=== PATIENT | male | born 1950 | race Caucasian/White ===

== ENCOUNTER 2021-04-28 15:30 | Emergency (ER) | payer SELFPAY ==
[2021-04-28] MEDS ORDERED: Labetalol 100 MG/20 ML MDV IVPUSH ONE (15:44)
[2021-04-28] MEDS ORDERED: Labetalol 100 MG/20 ML MDV ONE (15:44)
[2021-04-28] MEDS ORDERED: Losartan 50 MG Tab PO ONE (17:04)
[2021-04-28] MEDS ORDERED: Hydrochlorothiazide 25 MG Tab PO ONE (17:05)
== END 2021-04-28 19:23 | disposition home or self-care (01) ==
LOC: JD.ED 15:30
DX: I16.9 Hypertensive crisis, unspecified (principal); I10 Essential (primary) hypertension; Z79.899 Other long term (current) drug therapy
CPT/HCPCS: 36415; 70450; 71045; 80053; 82947; 84484; 85025; 85610; 85730; 93005; 96374; 99284; A9270; J3490; 93010; 99285

== ENCOUNTER 2024-10-28 23:00 | Emergency (ER) | payer SELFPAY ==
[2024-10-28 23:54] LABS: BASOPHILS ABSOLUTE AUTO 0.1 K/mm3 (0.0-0.2); BASOPHILS PERCENT AUTO 0.4 % (0.0-1.0); EOSINOPHILS ABSOLUTE AUTO 0.0 K/mm3 (0.0-0.4); EOSINOPHILS PERCENT AUTO 0.1 % (0.0-6.0); IMMATURE GRAN ABSOLUTE AUTO 0.11 K/mm3 (0.00-0.05); IMMATURE GRAN PERCENT AUTO 0.5 % (0.0-0.4); LYMPHOCYTES ABSOLUTE AUTO 2.3 K/mm3 (1.0-4.8); LYMPHOCYTES PERCENT AUTO 10.1 % (24.0-44.0); MEAN PLATELET VOLUME 8.9 fl (9.4-12.4); MONOCYTES ABSOLUTE AUTO 3.1 K/mm3 (0.0-0.8); MONOCYTES PERCENT AUTO 13.8 % (0.0-8.0); NEUTROPHILS ABSOLUTE AUTO 16.9 K/mm3 (1.8-7.7); NEUTROPHILS PERCENT AUTO 75.1 % (41.0-71.0); NRBC ABSOLUTE 0.00 (0.00-0.02); NRBC PERCENT 0.0 % (0.0-0.2); PLATELET COUNT,PLT 402 K/mm3 (150-400); RED BLOOD CELL COUNT 4.41 M/mm3 (4.52-5.90); WHITE BLOOD CELL COUNT,WBC 22.50 K/mm3 (3.9-11.3)
[2024-10-29] MEDS: Ketorolac 15 MG/ML SDV IVPUSH ONE ×2 (00:05→06:15)
[2024-10-29 00:06] LABS: A/G RATIO 0.8 (1-2); ALANINE AMINOTRANSFERASE,ALT 50.0 U/L (16-63); ASPARTATE AMNIOTRANSFERASE,AST 24.0 U/L (15-37); BILIRUBIN TOTAL 1.3 mg/dL (0.2-1.0); BLOOD UREA NITROGEN,BUN 28.0 mg/dL (7-18); CARBON DIOXIDE,CO2 24.0 mEq/L (21-32); CHLORIDE,CL 98.0 mEq/L (98-107); CREATININE 1.5 mg/dL (0.7-1.3); EST CRCL DRUG DOSING (CG) 40.47 mL/min; ESTIMATED GFR 48.0 mL/min (>60); GLUCOSE RANDOM 142.0 mg/dL (70-99); POTASSIUM,K 4.5 mEq/L (3.5-5.1); PROTEIN TOTAL,TP 7.0 g/dl (6.4-8.2); SODIUM,NA 134.0 mEq/L (136-145); TROPONIN I HIGH SENSITIVITY 12.0 pg/mL (<=76)
[2024-10-29] MEDS: Iopamidol 755 Mg/ML 100 ML Bottle IVPUSH ONE (00:30)
[2024-10-29 01:37] LABS: APPEARANCE,URINE CLEAR (Clear); GLUCOSE,URINE NEGATIVE (Negative); OCCULT BLOOD,URINE NEGATIVE (Negative)
[2024-10-29 01:48] LABS: LACTIC ACID 0.7 mmol/L (0.4-2.0)
[2024-10-29 02:01] LABS: EPITHELIAL CELLS,URINE 0-5 /hpf (0-5)
[2024-10-29] MEDS: Iopamidol 612 MG/ML 100 ML Bottle IVPUSH ONE (03:20)
[2024-10-29] MEDS: Acetaminophen/HYDROcodone 325-5 MG Tab PO ONE (06:19)
[2024-10-29] MEDS: Ketorolac 15 MG/ML SDV ONE (06:31)
== END 2024-10-29 06:40 ==
LOC: JD.ED 23:00
DX: I30.9 Acute pericarditis, unspecified (principal); I10 Essential (primary) hypertension; E66.9 Obesity, unspecified; E78.00 Pure hypercholesterolemia, unspecified; Z68.34 Body mass index [BMI] 34.0-34.9, adult
CPT/HCPCS: 36415; 71045; 71275; 74177; 80053; 81001; 83605; 84484; 85025; 87040; 93005; 96374; 99285; A9270; J1885; Q9967; 93010